=== PATIENT | female | born 1940 | race Hispanic/Latino ===

== ENCOUNTER → 2018-07-14 | Outpatient (CLI) | payer OTHER | END | disposition home or self-care (01) | LOC: RAH 14:02 | PROVIDERS: ATTEND Family Medicine | DX: Z12.31 Encounter for screening mammogram for malignant neoplasm of breast (principal); R92.8 Other abnormal and inconclusive findings on diagnostic imaging of breast | CPT/HCPCS: 77067 ==

== ENCOUNTER → 2019-07-15 | Outpatient (CLI) | payer OTHER | END | disposition home or self-care (01) | LOC: RAH 10:00 | PROVIDERS: ATTEND Family Medicine | DX: Z12.31 Encounter for screening mammogram for malignant neoplasm of breast (principal) | CPT/HCPCS: 77067 ==

== ENCOUNTER → 2020-12-07 | Outpatient (CLI) | payer OTHER | END | disposition home or self-care (01) | LOC: RAH 10:48 | PROVIDERS: ATTEND Family Medicine | DX: Z12.31 Encounter for screening mammogram for malignant neoplasm of breast (principal) | CPT/HCPCS: 77067 ==

== ENCOUNTER → 2022-12-24 | Outpatient (CLI) | payer OTHER | END | disposition home or self-care (01) | LOC: RAH 13:34 | PROVIDERS: ATTEND Family Medicine | DX: Z12.31 Encounter for screening mammogram for malignant neoplasm of breast (principal) | CPT/HCPCS: 77067 ==

== ENCOUNTER → 2023-12-31 | Outpatient (CLI) | payer OTHER ==
[~2023-12-31] MED LIST: LEVO125 PO
== END | disposition home or self-care (01) ==
LOC: RAH 10:15
PROVIDERS: ATTEND Family Medicine
DX: Z12.31 Encounter for screening mammogram for malignant neoplasm of breast (principal); R92.323 Mammographic fibroglandular density, bilateral breasts
CPT/HCPCS: 77067

== ENCOUNTER 2024-09-21 16:11 | Emergency (ER) | payer OTHER ==
[~2024-09-21] VITALS: Ht 167.6 cm; Wt 82.1 kg
--- NOTE | 2024-09-21 16:46 | ERN ---
ED Note History of Present Illness Stated Complaint: LEFT EAR BLEEDING Chief Complaint: Other Problems Time Seen by MD: 16:31 Dictation: PATIENT IS A 84-YEAR-OLD FEMALE COMING IN FROM A LOCAL DOCTOR'S OFFICE WITH BLEEDING FROM THE LEFT EAR, STATES IT STARTED THIS MORNING. SHE SAID SHE FELT SOMETHING IN HER EAR REACHED UP AND SCRATCHED AND SAW THAT SHE HAD BLOOD. SHE WENT AND SAW HER PRIMARY CARE DOCTOR WHO DID AN IRRIGATION OF THE EAR HOWEVER WAS UNABLE TO STOP THE BLEEDING AND ADVISED PATIENT COME TO THE EMERGENCY ROOM. PATIENT STATES SHE IS ON BLOOD THINNERS NO PAIN AT THIS TIME. NO HEARING LOSS. PATIENT NOTED TO HAVE A LONG NAILS. Allergies: Coded Allergies: No Known Drug Allergies (Unverified Allergy, Unknown, 03/04/23) Home Meds Reported Medications Levothyroxine Sodium (Levothroid/Synthroid) 125 Mcg Tab, 112 MCG PO DAILY, TAB 03/05/23 Past Medical History Past Medical History: No Pertinent History Surgical History: None Social History: Negative, Lives with family History: Not Applicable RN Note Reviewed/Agreed w/PFSH: Yes Review of System Dictation CONSTITUTIONAL: NEGATIVE EXCEPT FOR HPI HEAD/FACE: NEGATIVE EXCEPT FOR HPI EENT: NEGATIVE EXCEPT FOR HPI BLEEDING FROM LEFT EAR CANAL RESPIRATORY: NEGATIVE EXCEPT FOR HPI GASTROINTESTINAL/ABDOMINAL: NEGATIVE EXCEPT FOR HPI GENITOURINARY: NEGATIVE EXCEPT FOR HPI MUSCULOSKELETAL: NEGATIVE EXCEPT FOR HPI INTEGUMENTARY: NEGATIVE EXCEPT FOR HPI NEUROLOGICAL/PSYCH: NEGATIVE EXCEPT FOR HPI HEMATOLOGIC/LYMPHATIC: NEGATIVE EXCEPT FOR HPI ALL SYSTEMS NEGATIVE, EXCEPT NOTED ABOVE. 13 POINT REVIEW OF SYSTEMS ASSESSED AND ALL NEGATIVE EXCEPT FOR ABOVE. Initial Vital Sign VS Vital Signs Date Time Temp Pulse Resp B/P (MAP) Pulse Ox O2 Delivery O2 Flow Rate FiO2 09/21/24 16:19 97.9 65 16 168/74 99 Room Air 09/21/24 17:51 0 21 Physical Exam Dictation VITAL SIGNS REVIEWED GENERAL APPEARANCE: ALERT, ORIENTED X 3, NO ACUTE DISTRESS, WELL DEVELOPED, NOURISHED. HEAD AND FACE: NON-TRAUMATIC. EYES: PERRL, PINK CONJUNCTIVAS, EYELID NO TRAUMA, ANTERIOR CHAMBER WITH ARCUS SENILIS. EARS: PINNAS INTACT AND NO SIGNS OF TRAUMA ABRASION NOTED TO INFERIOR TYMPANIC MEMBRANE LEFT OOZING BRIGHT RED BLOOD. NOSE: NO DISCHARGE, NO BLEEDING. OROPHARYNX: MOUTH NORMAL, TONGUE PINK, PHARYNX CLEAR,NO ERYTHEMA, TONSILS NO EXUDATES, NO ABSCESSES NOTED, MUCOUS MEMBRANE MOIST NECK: SUPPLE, NON-TENDER, NO THYROMEGALY, NO MASSES, NO JVD, NO BRUITS BREAST:DEFERRED CHEST:NO TENDERNESS, NO CREPITUS, NO PARADOXICAL MOVEMENT, NO RETRACTIONS LUNGS:CLEAR, WELL-VENTILATED, SYMMETRIC, NO RALES, NO WHEEZING, NO RHONCHI, NO STRIDOR, GOOD BREATH SOUNDS BILATERALLY HEART: REGULAR RATE, REGULAR RHYTHM, NO MURMUR, NO GALLOPS VASCULAR: NO PERIPHERAL EDEMA, ABDOMEN: SOFT, POSITIVE BOWEL SOUNDS, NONDISTENDED, NO GUARDING, NONTENDER, NO REBOUND, NO MASSES NO HEPATOMEGALY, NO SPLENOMEGALY, NO WOODS'S SIGN, NO HERNIAS. RECTAL: DEFERRED GENITAL: DEFERRED NEUROLOGICAL: NORMAL SPEECH, MOTOR FUNCTION INTACT, SENSORY FUNCTION INTACT MUSCULOSKELETAL: NECK NONTENDER, FULL RANGE OF MOTION, BACK NONTENDER, FULL RANGE OF MOTION, EXTREMITIES: NONTENDER, FULL RANGE OF MOTION SKIN: COLOR PINK, DRY, NO TURGOR, NO RASH, NO LACERATIONS, NO ABRASIONS, NO CONTUSIONS. LYMPHATIC: DEFERRED Results (Laboratory/Radiology) Labs Reviewed?: Yes ED Course ED Course Orders Procedure Category Date Status Time *Nursing CPOE 09/21/24 Transmitted Communication: 16:44 Metoprolol Tartrate PHA 09/21/24 Complete (Lopressor) 17:30 Lidocaine 1%-Epi PHA 09/21/24 Complete 1:100,000 (Lidocaine 18:01 Lidocaine PHA 09/21/24 In Process Hcl/Epinephrine 18:00 Current Medications Medications (Trade) Dose Ordered Sig/Shelia Route PRN Reason Start Time Stop Time Status Last Admin Dose Admin Lidocaine/ Epinephrine (Lidocaine 1%-Epi 1:100,000) 20 ml STK-MED ONCE .ROUTE 09/21/24 18:01 09/21/24 18:01 DC Lidocaine/ Epinephrine (Xylocaine 1%-Epi 1:100,000) 5 ml ONCE IJ 09/21/24 18:00 10/01/24 17:59 Metoprolol Tartrate (loprESSOR) 5 mg ONCE ONCE IV 09/21/24 17:30 09/21/24 17:31 DC Vital Signs Date Time Temp Pulse Resp B/P (MAP) Pulse Ox O2 Delivery O2 Flow Rate FiO2 09/21/24 17:52 65 143/63 1/22/25 17:51 97.9 65 16 143/63 99 Room Air* 0 21 09/21/24 16:19 97.9 65 16 168/74 99 Room Air 1807 INSTILLED 2 ML 1% LIDOCAINE WITH EPINEPHRINE. LEFT EAR2 X 2 WAS PLACED IN THE CANAL AND PATIENT INSTRUCTED NOT TO REMOVE THE PACKING UNTIL TOMORROW MORN ING. ALSO SHE IS AWARE TO FOLLOW UP WITH HER DOCTOR FOR ENT REFERRAL. Medical Decision Making MDM MEDICAL DISCHARGE MAKING BASED ON TREATMENT AND IRRIGATION OF LEFT EAR PATIENT HAS A AN ABRASION TO THE INFERIOR CANAL SCANT BLEEDING NOTED NO FOREIGN BODY AND TM IS INTACT. 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 SHE HAS NO PAIN CONTINUES TO BLEED FROM THE ABRASION TO THE INFERIOR EAR CANAL. WE WILL ATTEMPT TO TAMPONADE BLEEDING WITH LIDOCAINE 1% WITH EPINEPHRINE. DX & DISP Disposition: Discharge Departure Impression: Primary Impression: Abrasion of left ear canal Condition: Stable Additional Instructions: FOLLOW-UP WITH PRIMARY CARE PROVIDER IN 1 TO 2 DAYS. TAKE MEDICATIONS DIRECTED HERE IN THE EMERGENCY ROOM. OKAY TO CONTINUE HOME MEDICATIONS UNLESS OTHERWISE DISCUSSED DURING YOUR VISIT IN THE EMERGENCY ROOM TODAY. RETURN TO YOUR NEAREST EMERGENCY ROOM IF SYMPTOMS WORSEN OR IF THERE IS NO IMPROVEMENT. CALL 911 IF YOU NEED IMMEDIATE ASSISTANCE. TAKE TYLENOL OR MOTRIN OVER-THE- COUNTER NEEDED AND IF NO CONTRAINDICATIONS ARE PRESENT. INCREASE ORAL HYDRATION. A WOUND CULTURE OR URINE CULTURE WAS ORDERED HERE IN THE EMERGENCY ROOM DEPARTMENT PLEASE FOLLOW-UP WITH PRIMARY CARE PROVIDER AND ADVISE THEM TO GET REPEAT PORTS FROM OUR FACILITY. IF YOU HAD ANY RUDY WRAP/SPLINTS THAT WERE APPLIED HERE, PLEASE DO NOT REMOVE THEM UNTIL YOU SEE YOUR PRIMARY CARE OR SPECIALTY. DO NOT REMOVE PACKING TO LEFT EAR UNTIL TOMORROW. SEE YOUR PRIMARY CARE DOCTOR IN THE MORNING FOR REFERRAL TO [facility] Referrals: MANUEL DENNY MD (PCP) Time of Disposition: 18:10 I have reviewed the case, and I agree with, Diagnosis and Plan SPENCER KLEIN NP Sep 21, 2024 16:46
[2024-09-21 17:51] VITALS: RESP 16; TEMP 97.9; O2SAT 99
[2024-09-21 17:52] VITALS: BP 143/63; PULSE 65
[2024-09-21] MEDS: metoPROLOL tartRATE 1 MG/ML 5ML VIAL IV ONE (17:52)
[2024-09-21] MEDS: LIDOCAINE HCL/EPINEPHRINE 50 ML VIAL IJ SCH (18:00)
[2024-09-21] MEDS: LIDOCAINE 1%-EPI 1:100,000 20 ML VIAL ONE (18:13)
== END 2024-09-21 18:16 | disposition home or self-care (01) ==
LOC: EDH 16:11
DX: S00.412A Abrasion of left ear, initial encounter (principal); Z79.890 Hormone replacement therapy; X58.XXXA Exposure to other specified factors, initial encounter; Y93.89 Activity, other specified; Y92.89 Other specified places as the place of occurrence of the external cause; Y99.8 Other external cause status
CPT/HCPCS: 99283; J3490

== ENCOUNTER → 2025-01-12 | Outpatient (CLI) | payer OTHER ==
--- NOTE | 2025-01-13 09:05 | HMCIMG ---
Exam Type: MAMMO DX BILATERAL, US BREAST COMPLETE UNILATERAL Clinical Information: UNSPECIFIED LUMP LEFT BREAST Comparison: December 31, 2023 Technique: Mammogram with CAD was performed with CC and MLO projections. CAD shows no worrisome regions. FINDINGS: The breasts are heterogeneously dense, which may obscure small masses. No dominant mass or suspicious microcalcification identified. There is no nipple retraction or skin thickening. Benign-appearing calcifications are seen. CAD shows no worrisome regions. Right breast shows no solid or cystic lesions especially at the 5:00 position region of interest. There are benign-appearing axillary lymph nodes. IMPRESSION: 1. No mammographic or sonographic signs of malignancy. 2. Routine follow-up recommended. CATEGORY 2: BENIGN FINDINGS Note: A negative x-ray should not delay biopsy if a dominant or clinically suspicious mass is present, since 8-10% of cancers are not identified by mammography. Dense breasts may obscure an underlying neoplasm.
== END | disposition home or self-care (01) ==
LOC: RAH 13:34
PROVIDERS: ATTEND Family Medicine
DX: R92.333 Mammographic heterogeneous density, bilateral breasts (principal); N63.23 Unspecified lump in the left breast, lower outer quadrant; N63.10 Unspecified lump in the right breast, unspecified quadrant
CPT/HCPCS: 76641; 77066